=== PATIENT | female | born 1950 | race Caucasian/White ===

== ENCOUNTER → 2022-07-25 10:14 | Outpatient (BNVA) | payer MEDICARE, OTHER, SELFPAY | PROVIDERS: Family Provider Emergency Medicine; PCP Emergency Medicine; Visit Provider Emergency Medicine | DX: J02.9 Acute pharyngitis, unspecified (principal) | CPT/HCPCS: 87071; 87880 ==

== ENCOUNTER → 2023-08-31 14:22 | Outpatient (BNVA) | payer MEDICARE, OTHER, SELFPAY | PROVIDERS: Family Provider Emergency Medicine; Visit Provider Nurse Practitioner | DX: R30.0 Dysuria (principal) | CPT/HCPCS: 81000; 87086 ==

== ENCOUNTER → 2023-10-14 11:02 | Outpatient (BNVA) | payer MEDICARE, OTHER, SELFPAY | PROVIDERS: Family Provider Emergency Medicine; PCP Nurse Practitioner Family; Visit Provider Nurse Practitioner Family | DX: B34.9 Viral infection, unspecified (principal) | CPT/HCPCS: 87426 ==

== ENCOUNTER 2024-03-13 10:39 | Observation (INO) | payer MEDICARE, OTHER, SELFPAY ==
[2024-03-13] VITALS (16 sets, daily range): BP systolic 95–157; BP diastolic 55–116; PULSE 56–85; RESP 17–20; TEMP 36.6–37.6; O2SAT 90–96; BMI 30.9
--- NOTE | 2024-03-13 10:50 | ECG_ITS ---
[facility]: 2024-03-13 Pat Name: Laura Martinez Department: Room: Gender: Female Hand Hardener: : 1950 Requested By: Sadiq Francois Order Number: [id number] George MD: Shay Zamora M.D. Measurements Intervals [place] Rate: 71 P: 69 NV: 174 QRS: 64 QRSD: 78 T: 46 QT: 356 QTc: 389 Interpretive Statements SINUS RHYTHM WITH OCCASIONAL SUPRAVENTRICULAR PREMATURE COMPLEXES NONSPECIFIC T-WAVE ABNORMALITY No previous ECG available for comparison Electronically Signed On 03-14-2024 22:19:47 LEAD TELLER by Shay Zamora M.D. [id number]
--- NOTE | 2024-03-13 10:56 | W.ED.SYNCOPE ---
HPI - Syncope General: Chief Complaint: Syncope Stated Complaint: N/V/D Syncope Time Seen by Provider: 03/13/24 10:44 Source: patient Mode of arrival: ambulatory Limitations: no limitations History of Present Illness: 73-year-old female who was at the clinic today she has been having flulike symptoms she states her last 2 days been having cough congestion some diarrhea and fever. She states that she has syncopal events when she is sick and this has happened many times the past states that today at the clinic she did pass out she did not fall she denies hitting her head she is given fluids and route she denies any vomiting but has had some diarrhea. Related Data Home Medications ?Medication ?Instructions ?Recorded ?Confirmed cholecalciferol (vitamin D3) 25 25 mcg PO DAILY 07/25/22 03/13/24 mcg (1,000 unit) capsule vitamin B complex (B 1 tab PO DAILY 07/25/22 03/13/24 Complex-Vitamin B12 tablet) colestipol 1 gram tablet 2 g PO DAILY 03/13/24 03/13/24 methenamine hippurate 1 gram tablet 1 g PO BID 03/13/24 03/13/24 Allergies Allergy/AdvReac Type Severity Reaction Status Date / Time ibuprofen Allergy Unknown unknown Verified 03/13/24 09:14 codeine Allergy ADR-Itching Verified 03/13/24 09:14 [facility] ED PFSH: Social History Smoking and tobacco/nicotine status: former use of tobacco/nicotine Physical Exam Const: COMMON NORMALS: no acute distress, patient oriented x3 and healthy appearing HENMT: COMMON NORMALS: normocephalic and atraumatic HEAD & SCALP: normocephalic and atraumatic Neck/C-Spine: COMMON NORMALS: full ROM and supple Chest: COMMONS NORMALS: normal inspection of the chest Resp: COMMON NORMALS: normal respiratory effort, No retractions, No use of accessory muscles and clear to auscultation bilaterally AUSCULTATION: clear to auscultation bilaterally Cardio: COMMON NORMALS: regular rate, regular rhythm and No murmurs present (Cardio) RATE: regular rate RHYTHM: regular rhythm GI: COMMON NORMALS: Normal to inspection, nondistended, normoactive bowel sounds present, Soft to palpation, non-tender and no masses PALPATION: Yes Soft to palpation Extremity: COMMON NORMALS: normal to inspection and full ROM Neuro: COMMON NORMALS: patient oriented x3, moves all extremities and no focal motor deficits Psych: COMMON NORMALS: mental status grossly normal, Normal thought process present and cooperative THOUGHT PROCESS: Normal thought process present Skin: COMMON NORMALS: no rashes or lesions noted and no wounds GENERAL SKIN EXAM: no rashes or lesions noted Course Vital Signs: Vital signs: Vital Signs Temperature 99.7 F H 03/13/24 10:48 Pulse Rate 68 03/13/24 12:17 Respiratory Rate 18 03/13/24 12:14 Blood Pressure 157/116 03/13/24 11:35 Pulse Oximetry 91 03/13/24 12:14 Oxygen Delivery Me thod Room Air 03/13/24 12:14 MDM - Syncope Medical Decision Making Patient presents here with a syncopal event she did test positive for flu here she has been hypoxic here requiring 2 L oxygen. I spoke to the hospitalist will admit for observation as she is hypoxic. Medical Records I reviewed the patient's medical records. Lab Data I reviewed the patient's lab results. 03/13/24 11:43 03/13/24 11:43 Radiology Impressions Chest X-Ray 03/13/24 11:33 Impression: Cardiomegaly and atherosclerosis. Laboratory Results WBC 6.66 10^3/uL (3.29-11.43) 03/13/24 11:43 RBC 3.78 10^6/uL (3.85-5.65) L 03/13/24 11:43 Hgb 12.30 g/dL (11.27-16.99) 03/13/24 11:43 Hct 38.0 % (36-47) 03/13/24 11:43 MCV 100.5 fl (85-98) H 03/13/24 11:43 MCH 32.5 pg (27-33) 03/13/24 11:43 MCHC 32.4 g/dL (30-55) 03/13/24 11:43 RDW 13.2 % (12.1-15.1) 03/13/24 11:43 Plt Count 204 10^3/cmm (157-399) 03/13/24 11:43 MPV 10.9 fL (7.4-10.4) H 03/13/24 11:43 Neut % (Auto) 78.7 % 03/13/24 11:43 Lymph % (Auto) 9.8 % 03/13/24 11:43 Saunders % (Auto) 10.4 % 03/13/24 11:43 Eos % (Auto) 0.0 % 03/13/24 11:43 Baso % (Auto) 0.8 % 03/13/24 11:43 Neut # (Auto) 5.25 10^3/uL (1.8-7.7) 03/13/24 11:43 Lymph # (Auto) 0.7 10^3/uL (0.8-4.8) L 03/13/24 11:43 Saunders # (Auto) 0.7 10^3/uL (0.2-0.9) 03/13/24 11:43 Eos # (Auto) 0.0 10^3/uL (0.0-0.8) 03/13/24 11:43 Baso # (Auto) 0.1 10^3/uL (0.0-0.1) 03/13/24 11:43 Nucleated RBC % (auto) 0 % 03/13/24 11:43 Nucleated RBCs # 0.0 /100WBC 03/13/24 11:43 Sodium 137 mmol/L (136-145) 03/13/24 11:43 Potassium 3.8 mmol/L (3.5-5.1) 03/13/24 11:43 Chloride 101 mmol/L (98-107) 03/13/24 11:43 Carbon Dioxide 26 mmol/L (22-29) 03/13/24 11:43 Anion Gap 13.8 (5-19) 03/13/24 11:43 BUN 15 mg/dL (8-23) 03/13/24 11:43 Creatinine 0.8 mg/dL (0.5-0.9) 03/13/24 11:43 GFR Calculation Not Reportable 03/13/24 11:43 Glucose 117 mg/dL (65-115) H 03/13/24 11:43 Calculated Osmolality 286 mOsm/kg (285-295) 03/13/24 11:43 Calcium 8.4 mg/dL (8.5-10.5) L 03/13/24 11:43 Total Bilirubin 0.2 mg/dL (0.15-1.2) 03/13/24 11:43 AST 18 U/L (0-32) 03/13/24 11:43 ALT 10 U/L (0-33) 03/13/24 11:43 Alkaline Phosphatase 78 U/L (35-105) 03/13/24 11:43 Total Protein 6.4 g/dL (6.6-8.7) L 03/13/24 11:43 Albumin 3.8 g/dL (3.5-5.2) 03/13/24 11:43 Globulin 2.6 g/dL (1.3-4.6) 03/13/24 11:43 Lipase 25 U/L (13-60) 03/13/24 11:43 Coronavirus (PCR) Negative (Negative) 03/13/24 10:50 Influenza A (PCR) Positive (Negative) 03/13/24 10:50 Influenza Type B (PCR) Negative (Negative) 03/13/24 10:50 RSV (PCR) Negative (Negative) 03/13/24 10:50 All radiology interpretation(s) finalized by discharge EKG Data EKG 1: I personally reviewed and interpreted this EKG as follows: EKG interpretation date: 03/13/24 EKG interpretation time: 10:52 Interpretation: nsr hr [address] or t wave abnormalities qrs 78 qtc 379 Discharge Plan Discharge Patient Disposition: Admitted As Inpatient Clinical Impression: Syncope, Influenza A, Hypoxia Condition: Stable Prescriptions: No Action vitamin B complex [B Complex-Vitamin B12] Tablet 1 tab PO DAILY cholecalciferol (vitamin D3) 25 mcg (1,000 unit) capsule 25 mcg PO DAILY methenamine hippurate 1 gram tablet 1 g PO BID colestipol 1 gram tablet 2 g PO DAILY Referrals: Dalila Farrell, CHENTE [Primary Care Provider] - Print Language: Urdu Coding Level of Care Code ED Plant Biology Professor for Chg Derek
[2024-03-13] MEDS: acetaminophen 500 mg Tablet 1000 MG PO (11:04)
--- NOTE | 2024-03-13 11:18 | PC.PHAR ---
patient states the doctor took her off the amlodipine because her blood pressure was to low, removed from chart
--- NOTE | 2024-03-13 11:33 | XR_ITS ---
WS: [id number] Portable AP semiupright chest, 03/13/2024 Clinical Data: sob Comparison: None. Findings: No nodules, masses or effusions are seen. The heart is slightly enlarged. The pulmonary vascularity is not increased. No pneumonia or pneumothorax is seen. The aortic arch and descending thoracic aorta show calcification and tortuosity. XR/XR chest 1V portable [id number] Impression: Cardiomegaly and atherosclerosis.
[2024-03-13 11:43] LABS: Influenza A POSITIVE (Negative); Influenza B NEGATIVE (Negative); Respiratory Syncytial Virus Ce NEGATIVE (Negative); SARS-CoV-2 PCR NEGATIVE (Negative)
[2024-03-13 11:53] LABS: Basophils # 0.1 10^3/uL (0.0-0.1); Basophils % 0.8 %; Lymphocytes # 0.7 10^3/uL (0.8-4.8); Lymphocytes % 9.8 %; Mean Corpuscular HGB Conc 32.4 g/dL (30-55); Mean Corpuscular Hemoglobin 32.5 pg (27-33); Mean Corpuscular Volume 100.5 fl (85-98); Mean Platelet Volume 10.9 fL (7.4-10.4); Monocytes # 0.7 10^3/uL (0.2-0.9); Monocytes % 10.4 %; Neutrophils # 5.25 10^3/uL (1.8-7.7); Neutrophils % 78.7 %; Nucleated Red Blood Cells % 0 %; Platelet Count 204 10^3/cmm (157-399); Red Blood Count 3.78 10^6/uL (3.85-5.65); Red Cell Distribution Width 13.2 % (12.1-15.1); White Blood Count 6.66 10^3/uL (3.29-11.43)
[2024-03-13] MEDS: ipratropium-albuterol 3 mL Neb INHALATION (12:13)
[2024-03-13 12:14] LABS: Alanine Aminotransferase 10 U/L (0-33); Albumin Level 3.8 g/dL (3.5-5.2); Alkaline Phosphatase 78 U/L (35-105); Anion Gap 13.8 (5-19); Aspartate Amino Transferase 18 U/L (0-32); Blood Urea Nitrogen 15 mg/dL (8-23); Calcium 8.4 mg/dL (8.5-10.5); Carbon Dioxide 26 mmol/L (22-29); Chloride 101 mmol/L (98-107); Creatinine Clr Calc Pharmacy 60.6135; Globulin 2.6 g/dL (1.3-4.6); Glucose 117 mg/dL (65-115); Lipase 25 U/L (13-60); Osmolality Calculated 286 mOsm/kg (285-295); Potassium 3.8 mmol/L (3.5-5.1); Sodium 137 mmol/L (136-145); Total Bilirubin 0.2 mg/dL (0.15-1.2); Total Protein 6.4 g/dL (6.6-8.7)
--- NOTE | 2024-03-13 13:54 | PC.NURSE ---
pt standing at doorway, this nurse asked if they needed anything, pt became hateful stating they have been sitting in the room waiting and haven't ate or drank all day, demanding food. this nurse gave pt sandwich, pudding and sprite.
--- NOTE | 2024-03-13 14:51 | PC.NURSE ---
report called to Cortney SOSA on med surg. 1450.
--- NOTE | 2024-03-13 15:39 | USCV_ITS ---
Laura Martinez Age: 73 Gender: F : 1950 Exam Date: 03/13/2024 18:47 Ordering Phys: Abelardo Curtis MD Technologist: MATEO Exam Location: [facility] [place] Indication: syncope, cardiomegaly, hypoxia, influenza isolation BP: 105 / 56 HR: 67 Rhythm: Sinus Technical Quality: Adequate MEASUREMENTS (Male / Female) Normal Values 2D ECHO LV Diastolic Diameter PLAX 3.9 cm 4.2 - 5.9 / 3.9 - 5.3 cm IVS Diastolic Thickness 1.4 cm 0.6 - 1.0 / 0.6 - 0.9 cm IVS Systolic Thickness 1.7 cm LVPW Diastolic Thickness 1.1 cm 0.6 - 1.0 / 0.6 - 0.9 cm LVPW Systolic Thickness 1.6 cm LVOT Diameter 1.8 cm LV Ejection Fraction 2D Teich 64.3 % LV Ejection Fraction MOD 4C 66.8 % LV Ejection Fraction MOD 2C 73.0 % LV Ejection Fraction 2C AL 72.4 % LA Diameter 4.0 cm LA Sys Volume AL 89.0 cm cubed LA Sys Volume Index AL 46.6 cm cubed/m squared Aorta at Sinotubular Diameter 2.8 cm IVC Diameter 1.6 cm M-MODE LA Ao Ratio MM 1.5 AV Cusp Separation MM 1.8 cm DOPPLER AV Peak Velocity 181.0 cm/s LVOT Peak Velocity 126.0 cm/s AV Area Cont Eq vti 2.0 cm squared AV Area Cont Eq pk 1.8 cm squared MV Peak Velocity 131.0 cm/s MV Area PHT 3.0 cm squared Mitral E to A Ratio 0.9 TV Peak Velocity 266.0 cm/s TR Peak Velocity 299.0 cm/s TR Peak Gradient 35.8 mmHg TV Peak E Velocity 47.0 cm/s PV Peak Velocity 94.0 cm/s FINDINGS Left Ventricle Left ventricle is normal in size. LV systolic function is normal with EF of 60-65%. No regional wall motion abnormalities are seen. Right Ventricle Normal in size and function Right Atrium Normal in size Left Atrium Dilated Mitral Valve Structurally normal mitral valve. Mild mitral regurgitation Aortic Valve Structurally normal aortic valve. No significant stenosis or regurgitation. Tricuspid Valve Mild tricuspid regurgitation. RVSP is 35 to 40 mmHg. This is consistent with mild pulmonary hypertension Pulmonic Valve Not well visualized Pericardium Normal Aorta Normal in size IVC Appears to be normal CONCLUSIONS LV systolic function is normal with EF of 60-65% Left atrial dilation Mild mitral regurgitation Mild tricuspid regurgitation Mild pulmonary hypertension No comparison studies are avaiable. Shay Zamora MD (Electronically Signed) Final Date: 14 March 2024 09:12 S
--- NOTE | 2024-03-13 15:45 | PM.HP ---
Providers/Chief Complaint Admitting Physician: Abelardo Curtis MD Primary Care Provider: Dalila Farrell NP Chief Complaint: N/V/D Syncope History of Present Illness Laura Martinez is a 73 year old female with no signal past medical history other than COVID-19 late last year presents to the ER from primary care's office today because of episode of syncope. Patient states she was been febrile since last night with fever going up to more than 101. Today she was feeling weak hence she went to the primary care's office. She had not eaten anything since morning. While going to the office she had an event when she felt weak, had shivering and collapsed to the floor. In the ER she was found to be hypoxic requiring up to 2 L of oxygen was found to be positive for influenza hence hospitalist service was consulted. On examination patient is laying comfortably in bed on 2 L of oxygen supplementation, awake and alert. Denies any nausea, vomiting, chest pain, headache, dizziness, weakness in any of her arms or legs. Review of Systems General: Reports: 10 or more systems reviewed and unremarkable except in HPI and below Const: Denies: fever(s), chills, body aches, change in appetite, change in weight, malaise, night sweats, diaphoresis, change in sleep pattern, daytime sleepiness or snoring Eyes: Denies: change in vision, blurry vision, photophobia, eye discomfort or eye discharge ENMT: Denies: throat pain, enlarged tonsils, hoarseness, mouth pain, oral sores, dry mouth, tinnitus, nasal congestion or post nasal drip Card: Denies: chest pain, palpitations, irregular heart rhythm, edema, swelling of feet/ankles, lightheadedness, syncope, pre-syncope, dyspnea on exertion, orthopnea, leg pain with exertion or acrocyanosis Resp: Denies: dyspnea, productive cough, non-productive cough, wheezing, stridor, pain on inspiration, change in phlegm color, hemoptysis or chest congestion GI: Denies: abdominal pain, nausea, vomiting, hematemesis, coffee ground emesis, dysphagia, heartburn, diarrhea, constipation, bloating, GI cramping, change in bowel habits, pain on defecation, hematochezia or melena : Denies: flank pain, dysuria, urinary frequency, urinary urgency, urinary hesitancy, nocturia or hematuria Musc: Denies: neck pain, back pain, extremity pain, joint pain, joint swelling, joint redness, joint stiffness or limited range of motion Neuro: Denies: headache(s), numbness in extremities, weakness in extremities, sensory changes, lack of coordination, difficulty walking, frequent falls, dizziness, vertigo, confusion, Slurred speech present, difficulty communicating thoughts or seizure-like activity Psych: Denies: anxiety, depression, mood swings, panic attacks, hopelessness or irritability Endo: Denies: polyuria, polydipsia, tired all the time, cold intolerance, excessive sweating, flushing or heat intolerance Erlin/Lymph: Denies: easy bruising or easy bleeding All/Imm: Denies: tongue swelling, facial swelling or acute wheezing Medications/Allergies Home Medications ?Medication ?Instructions ?Recorded ?Confirmed ?Last Taken ?Type cholecalciferol (vitamin D3) 25 25 mcg PO DAILY 07/25/22 03/13/24 03/12/24 History mcg (1,000 unit) capsule vitamin B complex (B 1 tab PO DAILY 07/25/22 03/13/24 03/12/24 History Complex-Vitamin B12 tablet) colestipol 1 gram tablet 2 g PO DAILY 03/13/24 03/13/24 03/12/24 History methenamine hippurate 1 gram tablet 1 g PO BID 03/13/24 03/13/24 03/12/24 History Allergies Allergy/AdvReac Type Severity Reaction Status Date / Time ibuprofen Allergy Unknown unknown Verified 03/13/24 09:14 codeine Allergy ADR-Itching Verified 03/13/24 09:14 PFSH Acute PFSH: Medical History (Updated 03/13/24 @ 17:16 by Abelardo Curtis MD) COVID-19 Family History (Updated 03/13/24 @ 17:16 by Abelardo Curtis MD) Other CAD (coronary artery disease) Social History (Updated 03/13/24 @ 17:16 by Abelardo Curtis MD) Smoking and tobacco/nicotine status: former use of tobacco/nicotine Alcohol intake: never Substance/Drug Use: never Caregiver/support person: Yes Lives independently: Yes Household members: spouse Housing: House Vitals/I&O/Wt Last Vital Signs Temp 99.3 F 03/13/24 14:39 Pulse 80 03/13/24 15:11 Resp 18 03/13/24 12:14 BP 114/55 03/13/24 15:11 Pulse Ox 93 03/13/24 15:11 O2 Del Method Nasal Cannula 03/13/24 15:12 O2 Flow Rate 2 03/13/24 14:30 Weight last 48 hrs Weight 79.379 kg Weight 79.379 kg Physical Exam Narrative: General: No acute distress, AO x3, dehydrated, nasal cannula HEENT: PERRLA, pupils bilaterally equal and reactive Chest: Normal vesicular breath sounds, occasional rhonchi all over lung pascal, equal good air entry bilaterally CVS: S1-S2 regular, no murmurs, no tachycardia, no gallops, no rubs Abdomen: Soft, nontender, no organomegaly, bowel sounds present Neuro: No focal deficits, no facial deformity, AO x3, power 5/5 in all limbs Data 03/13/24 11:43 03/13/24 11:43 A&P Assessment and plan (1) Syncope: Most likely in setting of viral syndrome due to influenza A. For now we will check orthostatics, troponin cycled, D-dimer. Start on NS at 75 cc/h. Check echocardiogram. site monitor for possible bradycardia or arrhythmia (2) Hypoxia: Most likely in setting of influenza A. Oxygen supplementation keeping saturation over 90%. Denies any formal history of COPD. Pulmicort twice daily, DuoNeb every 6 hour. Pulmonary toilet with incentive spirometry. Check MRSA swab, trend procalcitonin,, lactic acid, D-dimer sputum culture. Empirically start patient on Levaquin 750 mg oral daily. (3) Influenza A: Influenza 75 mg twice daily. Supportive treatment as above. Plan Full code Regular diet Famotidine for PUD prophylaxis Lovenox for DVT prophylaxis PDMP PDMP Reviewed: Not Reviewed Attestations Medical Necessity Statement*: Admit under observation for further evaluation and management of hypoxia and syncope in setting of influenza A Diagnoses Syncope R55 Hypoxia R09.02 Influenza A J10.1
--- NOTE | 2024-03-13 16:35 | ECG_ITS ---
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 Measurements Intervals [place] Rate: 59 P: 62 RI: 167 QRS: 14 QRSD: 88 T: 30 QT: 385 QTc: 384 Interpretive Statements SINUS BRADYCARDIA NONSPECIFIC T-WAVE ABNORMALITY Compared to ECG 03/13/2024 10:52:17 Sinus rhythm no longer present T-wave abnormality still present Electronically Signed On 03-14-2024 21:55:02 FORM SETTER HELPER by Shay Zamora M.D. [email or web address] [id number]
[2024-03-13] MEDS: methylPREDNISolone sod succ 40 mg/mL INJ IVP ×2 (17:04→22:43)
[2024-03-13] MEDS: enoxaparin 40 mg/0.4 mL Syringe SUBCUT (17:04)
[2024-03-13] MEDS: sodium chloride 0.9% 1,000 ML 75 ML IV (17:04)
[2024-03-13] MEDS: famotidine 20 mg Tablet PO (17:48)
[2024-03-13] MEDS: docusate sodium 100 mg Capsule PO (17:48)
[2024-03-13] MEDS: oseltamivir phosphate 75 mg Capsule PO (17:49)
[2024-03-13 19:18] LABS: Troponin(5th) Baseline 16 ng/L (0-10)
[2024-03-13 19:19] LABS: D Dimer 0.62 ug/mLFEU (0-0.59); Lactic Sepsis W/Reflex 2.1 mmol/L (0.5-2.2)
[2024-03-13 19:57] LABS: Procalcitonin 0.13 ng/mL (0-0.5); Thyroid Stimulating Hormone 0.55 uIU/mL (0.27-4.20)
[2024-03-13 20:08] LABS: Iron 22 ug/dL (37-145); Percent Saturation 9.1 % (20-50); Total Iron Binding Capacity 240 mcg/dl; Unsaturated Iron Binding 218 ug/dL (112-347)
[2024-03-13] MEDS: budesonide 0.5 mg/2 mL Neb INHALATION (20:13)
[2024-03-13] MEDS: ipratropium 0.5 mg/2.5 mL Neb INHALATION (20:13)
[2024-03-13] MEDS: levalbuterol 0.63 mg/3 mL Neb INHALATION (20:13)
[2024-03-13 20:20] LABS: MRSA PCR OZH (swab) NOT DETECTED (Not Detecte)
--- NOTE | 2024-03-13 20:21 | ECG_ITS ---
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 Measurements Intervals [place] Rate: 64 P: 66 [place]: 171 QRS: 11 QRSD: 86 T: 29 QT: 365 QTc: 377 Interpretive Statements SINUS RHYTHM NONSPECIFIC T-WAVE ABNORMALITY Compared to ECG 03/13/2024 17:21:39 Sinus bradycardia no longer present T-wave abnormality still present Electronically Signed On 03-14-2024 22:17:39 SPECIALTIES OPERATOR by Shay Zamora M.D. [id number]
[2024-03-13 20:45] LABS: Estmated Average Glucose 126; Reflex Lactate Order REFLEX LACTIC ORDERD
[2024-03-13 21:04] LABS: Vitamin B12 > 2000 pg/mL (232-1245)
[2024-03-13 21:08] LABS: Troponin 5 2HR 12.45 ng/L (0-10)
[2024-03-13 21:13] LABS: Troponin 5 2HR Delta -3.55 ABS# (0-10)
[2024-03-13 21:22] LABS: Lactic Acid level (Lactate) 2.1 mmol/L (0.5-2.2)
--- NOTE | 2024-03-13 22:48 | ECG_ITS ---
[facility] Test Date: 2024-03-13 Pat Name: Laura Martinez Department: Room: 261 Gender: Female Project Lead: : 1950 Requested By: Abelardo Curtis Order Number: [id number] George MD: Shay Zamora M.D. Measurements Intervals [place] Rate: 62 P: 68 WI: 166 QRS: 28 QRSD: 89 T: 32 QT: 379 QTc: 387 Interpretive Statements SINUS RHYTHM WITH OCCASIONAL SUPRAVENTRICULAR PREMATURE COMPLEXES LOW QRS VOLTAGE IN PRECORDIAL LEADS [QRS DEFLECTION < 1.0 mV IN CHEST LEADS] NONSPECIFIC T-WAVE ABNORMALITY Compared to ECG 03/13/2024 20:21:59 Low QRS voltage now present T-wave abnormality still present Electronically Signed On 03-14-2024 22:16:51 MARKETING COMMUNICATIONS MANAGER by Shay Zamora M.D. [id number]
[2024-03-14] VITALS (10 sets, daily range): BP systolic 116–154; BP diastolic 58–87; PULSE 53–73; RESP 16–18; TEMP 36.7–36.9; O2SAT 92–98
[2024-03-14 00:51] LABS: Basophils % 0.4 %; Hematocrit 37.4 % (36-47); Lymphocytes # 0.7 10^3/uL (0.8-4.8); Lymphocytes % 12.9 %; Mean Corpuscular HGB Conc 31.8 g/dL (30-55); Mean Corpuscular Volume 100.5 fl (85-98); Mean Platelet Volume 11.1 fL (7.4-10.4); Monocytes # 0.1 10^3/uL (0.2-0.9); Monocytes % 1.3 %; Neutrophils # 4.56 10^3/uL (1.8-7.7); Nucleated Red Blood Cells % 0 %; Platelet Count 197 10^3/cmm (157-399); Red Blood Count 3.72 10^6/uL (3.85-5.65); Red Cell Distribution Width 13.1 % (12.1-15.1); White Blood Count 5.36 10^3/uL (3.29-11.43)
[2024-03-14 01:09] LABS: Troponin 5 6HR 11.14 ng/L (0-10)
[2024-03-14 01:11] LABS: Troponin 5 6HR Delta -4.86 ng/L (0-12)
[2024-03-14 01:12] LABS: Alanine Aminotransferase 10 U/L (0-33); Albumin Level 3.7 g/dL (3.5-5.2); Alkaline Phosphatase 71 U/L (35-105); Anion Gap 14.1 (5-19); Aspartate Amino Transferase 17 U/L (0-32); Blood Urea Nitrogen 22 mg/dL (8-23); Calcium 8.5 mg/dL (8.5-10.5); Carbon Dioxide 26 mmol/L (22-29); Chloride 106 mmol/L (98-107); Creatinine Clr Calc Pharmacy 60.6135; Globulin 2.6 g/dL (1.3-4.6); Glucose 206 mg/dL (65-115); Magnesium 1.8 mg/dL (1.7-2.3); Osmolality Calculated 303 mOsm/kg (285-295); Phosphorus 3.2 mg/dL (2.5-4.5); Potassium 4.1 mmol/L (3.5-5.1); Sodium 142 mmol/L (136-145); Total Bilirubin 0.2 mg/dL (0.15-1.2); Total Protein 6.3 g/dL (6.6-8.7)
[2024-03-14 01:15] LABS: Chol HDL Ratio 2.11 mg/dL (0.0-4.40); Cholesterol 112 mg/dL (0-200); HDL Cholesterol 53 mg/dL (60-100); LDL Cholesterol Calculated 46 mg/dL (50-129); LDL HDL Ratio 0.87 RATIO (0.00-3.22); Triglycerides 65 mg/dL (0-150)
[2024-03-14 01:19] LABS: Procalcitonin 0.11 ng/mL (0-0.5)
[2024-03-14 01:39] LABS: Folate Level 13.7 ng/mL (4.8-37.3)
[2024-03-14] MEDS: levalbuterol 0.63 mg/3 mL Neb INHALATION ×2 (02:38→07:59)
[2024-03-14] MEDS: ipratropium 0.5 mg/2.5 mL Neb INHALATION ×2 (02:38→07:59)
[2024-03-14] MEDS: methylPREDNISolone sod succ 40 mg/mL INJ IVP ×2 (03:29→07:56)
[2024-03-14] MEDS: sodium chloride 0.9% 1,000 ML 75 ML IV (05:24)
[2024-03-14] MEDS: famotidine 20 mg Tablet PO (07:57)
[2024-03-14] MEDS: oseltamivir phosphate 75 mg Capsule PO (07:58)
[2024-03-14] MEDS: budesonide 0.5 mg/2 mL Neb INHALATION (07:59)
--- NOTE | 2024-03-14 10:50 | PM.DCS ---
Discharge Providers Date of Admission: 03/13/24 14:38 Date of Discharge: March 14, 2024 Attending Provider at Admission: Abelardo Curtis MD Attending Provider at Discharge: Abelardo Curtis MD Primary Care Provider: Dalila Farrell NP Diagnoses at Discharge Discharge Diagnosis (1) Syncope: Status: Acute (2) Hypoxia: Status: Acute (3) Influenza A: Status: Acute Reason for Visit Reason for Visit: N/V/D Syncope Brief History: Laura Martinez is a 73 year old female with no signal past medical history other than COVID-19 late last year presents to the ER from primary care's office today because of episode of syncope. Patient states she was been febrile since last night with fever going up to more than 101. Today she was feeling weak hence she went to the primary care's office. She had not eaten anything since morning. While going to the office she had an event when she felt weak, had shivering and collapsed to the floor. In the ER she was found to be hypoxic requiring up to 2 L of oxygen was found to be positive for influenza hence hospitalist service was consulted. On examination patient is laying comfortably in bed on 2 L of oxygen supplementation, awake and alert. Denies any nausea, vomiting, chest pain, headache, dizziness, weakness in any of her arms or legs. Hospital Course Hospital Course Patient was admitted to the hospital further evaluation and management of syncope in setting of viral syndrome due to influenza A. On admission she was hypoxic. She was started on treatment with nebulization, Tamiflu and steroids. She responded well to the treatment and has been on room air for last 24 hours. Orthostatics have remained negative. She has been steady on her feet with no further symptoms of syncope. She has been discharged in hemodynamically stable condition back home with advised to keep checking her blood pressure daily at home for next 2 weeks and follow-up with the PCP. She is to take steroids for next 5 days, Tamiflu and Levaquin for next 3 days. Physical Exam Narrative: General: No acute distress, AO x3, HEENT: PERRLA, pupils bilaterally equal and reactive Chest: Normal vesicular breath sounds, occasional rhonchi all over lung pascal, equal good air entry bilaterally CVS: S1-S2 regular, no murmurs, no tachycardia, no gallops, no rubs Abdomen: Soft, nontender, no organomegaly, bowel sounds present Neuro: No focal deficits, no facial deformity, AO x3, power 5/5 in all limbs Discharge Data Studies Completed and Pending Completed Studies During Hospitalization Category Date Time Status CXRP [XR chest 1V portable [id number]] Stat Exams 03/13/24 11:33 Completed CV. echo complete* [id number] Routine Ultrasound 03/13/24 15:39 Completed Pending at discharge Category Date Time Status Bacterial Antigen Stat Lab 03/13/24 15:39 Ordered Blood Culture Stat Lab 03/13/24 18:43 Results Complete Blood Count w/Auto AM LABS Lab 03/15/24 04:00 Ordered Complete Blood Count w/Auto AM LABS Lab 03/16/24 04:00 Ordered Comprehensive Metabolic Panel AM LABS Lab 03/15/24 04:00 Ordered Comprehensive Metabolic Panel AM LABS Lab 03/16/24 04:00 Ordered Magnesium AM LABS Lab 03/15/24 04:00 Ordered Magnesium AM LABS Lab 03/16/24 04:00 Ordered Phosphorus AM LABS Lab 03/15/24 04:00 Ordered Phosphorus AM LABS Lab 03/16/24 04:00 Ordered Sputum Culture and Gram Stain Stat Lab 03/13/24 16:51 Uncollected Urinalysis Routine Lab 03/13/24 15:43 Ordered Radiology Impressions Chest X-Ray 03/13/24 11:33 Impression: Cardiomegaly and atherosclerosis. Echocardiogram: CONCLUSIONS LV systolic function is normal with EF of 60-65% Left atrial dilation Mild mitral regurgitation Mild tricuspid regurgitation Mild pulmonary hypertension No comparison studies are avaiable. Shay Zamora MD (Electronically Signed) Final Date: 14 March 2024 09:12 S Laboratory Results WBC 5.36 10^3/uL (3.29-11.43) 03/14/24 00:40 RBC 3.72 10^6/uL (3.85-5.65) L 03/14/24 00:40 Hgb 11.90 g/dL (11.27-16.99) 03/14/24 00:40 Hct 37.4 % (36-47) 03/14/24 00:40 MCV 100.5 fl (85-98) H 03/14/24 00:40 MCH 32.0 pg (27-33) 03/14/24 00:40 MCHC 31.8 g/dL (30-55) 03/14/24 00:40 RDW 13.1 % (12.1-15.1) 03/14/24 00:40 Plt Count 197 10^3/cmm (157-399) 03/14/24 00:40 MPV 11.1 fL (7.4-10.4) H 03/14/24 00:40 Neut % (Auto) 85.0 % 03/14/24 00:40 Lymph % (Auto) 12.9 % 03/14/24 00:40 Harrison % (Auto) 1.3 % 03/14/24 00:40 Eos % (Auto) 0.0 % 03/14/24 00:40 Baso % (Auto) 0.4 % 03/14/24 00:40 Neut # (Auto) 4.56 10^3/uL (1.8-7.7) 03/14/24 00:40 Lymph # (Auto) 0.7 10^3/uL (0.8-4.8) L 03/14/24 00:40 Harrison # (Auto) 0.1 10^3/uL (0.2-0.9) L 03/14/24 00:40 Eos # (Auto) 0.0 10^3/uL (0.0-0.8) 03/14/24 00:40 Baso # (Auto) 0.0 10^3/uL (0.0-0.1) 03/14/24 00:40 Nucleated RBC % (auto) 0 % 03/14/24 00:40 Nucleated RBCs # 0.0 /100WBC 03/14/24 00:40 D-Dimer 0.62 ug/mLFEU (0-0.59) H 03/13/24 18:38 Sodium 142 mmol/L (136-145) 03/14/24 00:40 Potassium 4.1 mmol/L (3.5-5.1) 03/14/24 00:40 Chloride 106 mmol/L (98-107) 03/14/24 00:40 Carbon Dioxide 26 mmol/L (22-29) 03/14/24 00:40 Anion Gap 14.1 (5-19) 03/14/24 00:40 BUN 22 mg/dL (8-23) 03/14/24 00:40 Creatinine 0.8 mg/dL (0.5-0.9) 03/14/24 00:40 GFR Calculation Not Reportable 03/14/24 00:40 Glucose 206 mg/dL (65-115) H 03/14/24 00:40 Estimat Average Glucose 126 03/13/24 18:38 Hemoglobin A1c 6.0 % (4.0-6.0) 03/13/24 18:38 Calculated Osmolality 303 mOsm/kg (285-295) H 03/14/24 00:40 Lactic Acid 2.1 mmol/L (0.5-2.2) 03/13/24 18:38 Lactic Acid (Sepsis) 2.1 mmol/L (0.5-2.2) 03/13/24 20:57 Calcium 8.5 mg/dL (8.5-10.5) 03/14/24 00:40 Phosphorus 3.2 mg/dL (2.5-4.5) 03/14/24 00:40 Magnesium 1.8 mg/dL (1.7-2.3) 03/14/24 00:40 Iron 22 ug/dL (37-145) L 03/13/24 18:38 TIBC 240 mcg/dl 03/13/24 18:38 % Saturation 9.1 % (20-50) L 03/13/24 18:38 Unsat Iron Binding 218 ug/dL (112-347) 03/13/24 18:38 Total Bilirubin 0.2 mg/dL (0.15-1.2) 03/14/24 00:40 AST 17 U/L (0-32) 03/14/24 00:40 ALT 10 U/L (0-33) 03/14/24 00:40 Alkaline Phosphatase 71 U/L (35-105) 03/14/24 00:40 Troponin T Baseline 16 ng/L (0-10) H 03/13/24 18:38 Troponin T 120 Minute 12.45 ng/L (0-10) H 03/13/24 20:17 Delta Troponin T -3.55 ABS# (0-10) L 03/13/24 20:17 Troponin T Hi Sens 6Hr 11.14 ng/L (0-10) H 03/14/24 00:40 Troponin T Hi Sens 6Hr Delta -4.86 ng/L (0-12) L 03/14/24 00:40 Total Protein 6.3 g/dL (6.6-8.7) L 03/14/24 00:40 Albumin 3.7 g/dL (3.5-5.2) 03/14/24 00:40 Globulin 2.6 g/dL (1.3-4.6) 03/14/24 00:40 Triglycerides 65 mg/dL (0-150) 03/14/24 00:40 Cholesterol 112 mg/dL (0-200) 03/14/24 00:40 LDL Cholesterol, Calc 46 mg/dL (50-129) L 03/14/24 00:40 HDL Cholesterol 53 mg/dL (60-100) L 03/14/24 00:40 LDL/HDL Ratio 0.87 RATIO (0.00-3.22) 03/14/24 00:40 Cholesterol/HDL Ratio 2.11 mg/dL (0.0-4.40) 03/14/24 00:40 Lipase 25 U/L (13-60) 03/13/24 11:43 Vitamin B12 > 2000 pg/mL (232-1245) H 03/13/24 18:38 Folate 13.7 ng/mL (4.8-37.3) 03/14/24 00:40 Procalcitonin 0.11 ng/mL (0-0.5) 03/14/24 00:40 TSH 0.55 uIU/mL (0.27-4.20) 03/13/24 18:38 Nasal MRSA (PCR) Not detected (Not Detecte) 03/13/24 17:45 Coronavirus (PCR) Negative (Negative) 03/13/24 10:50 Influenza A (PCR) Positive (Negative) 03/13/24 10:50 Influenza Type B (PCR) Negative (Negative) 03/13/24 10:50 RSV (PCR) Negative (Negative) 03/13/24 10:50 Vitals Last Vital Signs Temp 98.1 F 03/14/24 07:47 Pulse 70 03/14/24 10:02 Resp 16 03/14/24 08:24 BP 154/87 03/14/24 10:02 Pulse Ox 92 03/14/24 08:24 O2 Del Method Room Air 03/14/24 08:24 O2 Flow Rate 2 03/14/24 08:00 Discharge Plan Discharge Patient Disposition: Home Condition: Stable Prescriptions: New oseltamivir 75 mg Capsule 75 mg PO BID Qty: 6 0RF levofloxacin 750 mg Tablet 750 mg PO DAILY@0600 Qty: 3 0RF prednisone 10 mg tablet 40 mg PO DAILY 5 Days Qty: 5 0RF Taper: predniSONE 60-10 60 mg Daily for 2 Days and 0 Hour 50 mg Daily for 2 Days and 0 Hour 40 mg Daily for 2 Days and 0 Hour 30 mg Daily for 2 Days and 0 Hour 20 mg Daily for 2 Days and 0 Hour 10 mg Daily for 2 Days and 0 Hour Rx Instructions: see taper instructions Continued vitamin B complex [B Complex-Vitamin B12] Tablet 1 tab PO DAILY cholecalciferol (vitamin D3) 25 mcg (1,000 unit) capsule 25 mcg PO DAILY methenamine hippurate 1 gram tablet 1 g PO BID colestipol 1 gram tablet 2 g PO DAILY Discharge Orders: Discharge Order (Routine); Ordered 03/14/24 Ordered By: Abelardo Curtis Referrals: Dalila Farrell NP [Primary Care Provider] - 2 weeks (We have notified your physician's clinic of the need for a follow-up appointment to be scheduled. If you have not heard from them within the next 2 business days, please call them directly. ) Discharge Diet: Cardiac Discharge Activity: Resume usual activity and Increase activity as tolerated Patient Instructions: Syncope (DC), Influenza (DC), Hypoxia (ED), Opioid Safety Activity Restrictions/Additional Instructions: Please check your blood pressure daily at home maintain a blood pressure diary. Follow-up with your primary care provider within next 2 weeks for further adjustment of antihypertensive as needed. Goal blood pressure less than 140/90 mmHg. Levaquin is the antibiotic. Please take for next 3 days. Take Tamiflu twice daily for next 3 days. You will be on steroid with prednisone 40 mg daily for next 5 days. Discharge Attestations Time Spent in Discharge Care*: greater than 30 min Specific Discharge Activities: educating patient, discussing with pcp/other providers, discussing with comp field case manager/social workers/dc planners, documenting/other paperwork and evaluating patient/reviewing data Status at Discharge: Cognitive status at discharge: cognitively intact, Behavioral status at discharge: cooperative, Functional status at discharge: independent ambulation, Overall status at discharge: patient is back to baseline Quality Metrics Clinical Quality Measures [ No reported AMI, CVA or VTE this stay] Coding Level of Care Code 76037 Total time (in minutes) for Discharge: 60 Diagnoses Syncope R55 Hypoxia R09.02 Influenza A J10.1
== END 2024-03-14 14:00 | disposition home or self-care (01) ==
LOC: ER 13:29 → MEDSURG 14:38
PROVIDERS: Admitting Provider Student in an Organized Health Care Education/Training Program; Emergency Provider Emergency Medicine; PCP Nurse Practitioner Family; Visit Provider Student in an Organized Health Care Education/Training Program
DX: R55 Syncope and collapse (principal); J10.1 Influenza due to other identified influenza virus with other respiratory manifestations; R09.02 Hypoxemia; Z79.899 Other long term (current) drug therapy; Z88.5 Allergy status to narcotic agent; Z88.8 Allergy status to other drugs, medicaments and biological substances; Z87.891 Personal history of nicotine dependence; I70.0 Atherosclerosis of aorta; I08.1 Rheumatic disorders of both mitral and tricuspid valves; I27.20 Pulmonary hypertension, unspecified; Z86.16 Personal history of COVID-19; Z11.52 Encounter for screening for COVID-19
CPT/HCPCS: 36415; 71045; 80053; 80061; 82607; 82746; 83036; 83540; 83550; 83605; 83690; 83735; 84100; 84145; 84443; 84484; 85025; 85378; 87040; 87637; 93005; 93306; 94640; 94664; 96372; 96374; 99285; G0378; J1650; J2919; J7030; J7614; J7626; J7644